=== PATIENT | female | born 1935 | race Caucasian/White ===

== ENCOUNTER 2019-02-23 20:02 | Inpatient (IN) | payer OTHER ==
[~2019-02-23] VITALS: Ht 127 cm; Wt 61.0 kg
[2019-02-23 21:45] LABS: BASOPHIL % 0.1 % (0-2); PLATELET COUNT 324 x10^3mcL (130-400)
[2019-02-23 21:47] LABS: microscopic required? YES; urine erythrocyte 1+ (NEGATIVE)
[2019-02-23 21:47] LABS: RED CELL DISTRIBUTION WIDTH 15.5 % (11.5-14.5)
[2019-02-23 21:57] LABS: CALCIUM 8.4 mg/dL (8.5-10.1); CARBON DIOXIDE 29.8 mmol/L (21-32); CHLORIDE SERUM 103 mmol/L (98-107); CREATININE SERUM 1.5 mg/dL (0.6-1.0); GLUCOSE SERUM 231 mg/dL (74-106); POTASSIUM SERUM 3.6 mmol/L (3.5-5.1); SODIUM SERUM 139 mmol/L (136-145)
[2019-02-23 22:02] LABS: ALKALINE PHOSPHATASE 87 U/L (46-116); ALT/SGPT 21 U/L (14-59); AST/SGOT 24 U/L (15-37); BILIRUBIN TOTAL 0.3 mg/dL (0.20-1.00); TOTAL PROTEIN, SERUM 8.1 g/dL (6.4-8.2)
[2019-02-24] VITALS (7 sets, daily range): BP systolic 111–150; BP diastolic 36–54; Ht 127 cm; Wt 61.0 kg
[2019-02-25 04:49] VITALS: BP 172/52
[2019-02-25 07:00] LABS: BASOPHIL % 0.3 % (0-2); PLATELET COUNT 258 x10^3mcL (130-400)
[2019-02-25 07:10] LABS: CALCIUM 7.2 mg/dL (8.5-10.1); CARBON DIOXIDE 27.3 mmol/L (21-32); CHLORIDE SERUM 99 mmol/L (98-107); CREATININE SERUM 2.2 mg/dL (0.6-1.0); GLUCOSE SERUM 97 mg/dL (74-106); POTASSIUM SERUM 3.6 mmol/L (3.5-5.1); SODIUM SERUM 134 mmol/L (136-145)
[2019-02-25 07:57] VITALS: BP 159/57
[2019-02-25 08:10] LABS: RED CELL DISTRIBUTION WIDTH 15.6 % (11.5-14.5)
[2019-02-25 11:20] VITALS: BP 155/57
[2019-02-25 16:10] VITALS: BP 122/58
[2019-02-25 19:44] VITALS: BP 154/50
[2019-02-26 04:38] VITALS: BP 154/57
[2019-02-26 06:43] LABS: ALKALINE PHOSPHATASE 71 U/L (46-116); ALT/SGPT 9 U/L (14-59); AST/SGOT 13 U/L (15-37); BILIRUBIN TOTAL 0.21 mg/dL (0.20-1.00); CARBON DIOXIDE 28.3 mmol/L (21-32); CHLORIDE SERUM 106 mmol/L (98-107); CREATININE SERUM 1.7 mg/dL (0.6-1.0); GLUCOSE SERUM 82 mg/dL (74-106); POTASSIUM SERUM 3.6 mmol/L (3.5-5.1); SODIUM SERUM 144 mmol/L (136-145); TOTAL PROTEIN, SERUM 6.5 g/dL (6.4-8.2)
[2019-02-26 06:59] LABS: BASOPHIL % 0.3 % (0-2); PLATELET COUNT 271 x10^3mcL (130-400)
[2019-02-26 07:34] LABS: RED CELL DISTRIBUTION WIDTH 15.7 % (11.5-14.5)
[2019-02-26 08:11] VITALS: BP 152/57
[2019-02-26 12:08] VITALS: BP 157/67
[2019-02-26 16:29] VITALS: BP 157/62
[2019-02-26 16:31] VITALS: BP 106/73
[2019-02-26 19:34] VITALS: BP 148/48
[2019-02-27 04:40] VITALS: BP 140/62
[2019-02-27 07:23] LABS: ALKALINE PHOSPHATASE 83 U/L (46-116); ALT/SGPT 9 U/L (14-59); AST/SGOT 12 U/L (15-37); BILIRUBIN TOTAL 0.27 mg/dL (0.20-1.00); CALCIUM 7.4 mg/dL (8.5-10.1); CARBON DIOXIDE 26.9 mmol/L (21-32); CHLORIDE SERUM 103 mmol/L (98-107); CREATININE SERUM 1.5 mg/dL (0.6-1.0); GLUCOSE SERUM 96 mg/dL (74-106); MAGNESIUM 1.9 mg/dL (1.8-2.4); POTASSIUM SERUM 4.1 mmol/L (3.5-5.1); SODIUM SERUM 142 mmol/L (136-145); TOTAL PROTEIN, SERUM 7.5 g/dL (6.4-8.2)
[2019-02-27 07:24] LABS: ALBUMIN 2.3 g/dL (3.4-5.0)
[2019-02-27 07:53] LABS: BASOPHIL % 0.4 % (0-2); PLATELET COUNT 354 x10^3mcL (130-400)
[2019-02-27 08:33] LABS: RED CELL DISTRIBUTION WIDTH 15.8 % (11.5-14.5)
[2019-02-27 08:58] VITALS: BP 154/53
[2019-02-27 12:17] VITALS: BP 145/60
[2019-02-27 13:10] VITALS: BP 145/60
[2019-02-27 16:45] VITALS: BP 119/53
[2019-02-27 21:35] VITALS: BP 153/57
[2019-02-28 05:24] VITALS: BP 132/54
[2019-02-28] MEDS ORDERED: AUG500 PO (05:52)
[2019-02-28 08:31] VITALS: BP 162/53
[2019-02-28 11:57] VITALS: BP 135/64
== END 2019-02-28 16:48 | disposition home health service (06) | DRG 139 ==
LOC: ED 20:02 → DU 23:14
PROVIDERS: Emergency Medicine; Internal Medicine Pulmonary Disease; ADMIT Internal Medicine Pulmonary Disease
DX: J18.9 Pneumonia, unspecified organism (principal); N17.0 Acute kidney failure with tubular necrosis; J81.1 Chronic pulmonary edema; E86.0 Dehydration; E11.65 Type 2 diabetes mellitus with hyperglycemia; I10 Essential (primary) hypertension; Z79.84 Long term (current) use of oral hypoglycemic drugs; Z88.8 Allergy status to other drugs, medicaments and biological substances
CPT/HCPCS: 36600; 82962; 87804; 90658; 90732; 97116-GP; 97530-GP; G0378; J0132; J0456; J0696; J1644; J2405; J3490; J7030; J7060; J7620; Q0092

== ENCOUNTER 2019-03-16 17:00 | Emergency (ER) | payer OTHER ==
[~2019-03-16] VITALS: Ht 127 cm; Wt 61.2 kg
[~2019-03-16 17:00] MED LIST: AUG500 PO
[2019-03-16 17:14] VITALS: Ht 127 cm; Wt 61.2 kg
[2019-03-16 19:04] VITALS: BP 149/53
== END 2019-03-16 19:04 | disposition home or self-care (01) ==
LOC: ED 17:00
DX: M54.5 Low back pain (principal); I10 Essential (primary) hypertension; E11.9 Type 2 diabetes mellitus without complications; M81.0 Age-related osteoporosis without current pathological fracture; Z88.5 Allergy status to narcotic agent